=== PATIENT | male | born 1950 | race Caucasian/White ===

== ENCOUNTER → 2022-01-26 | Day surgery (SDC) | payer MEDICARE, OTHER ==
[~2022-01-26] VITALS: Ht 182.9 cm; Wt 70.8 kg
[~2022-01-26] MED LIST: AUGMENTIN 875-1 EACH PO; DUONEB 2.5-0.5M1 AMP NEB; MS CONTIN30 MG PO; NEURONTIN300 MG PO; PERCOCET 5-3251 EACH PO
[2022-01-26 08:25] LABS: HCT 49.2 % (42.0-52.0); HGB 16.4 g/dl (13.2-18.0); MCH 31.2 pg (25.0-31.0); MCHC 33.3 g/dL (32.0-36.0); MCV 93.5 fL (78.0-100.0); MPV 8.4 fL (6.0-9.5); RBC 5.26 M/uL (4.70-6.00); RDW 11.5 % (11.5-14.0); WBC 9.6 K/uL (4.0-10.5)
[2022-01-26 08:57] LABS: ALBUMIN 4.5 g/dL (3.4-5.0); BILIRUBIN - TOTAL 0.6 mg/dL (0.2-1.0); BUN/CREAT RATIO (CALC) 14.1 RATIO; CREATININE 0.99 mg/dL (0.67-1.17); GLOBULIN (CALCULATION) 3.5 g/dL; POTASSIUM 5.2 mmol/L (3.5-5.1)
== END | disposition home or self-care (01) ==
LOC: FAS 07:54
PROVIDERS: Surgery
DX: R19.5 Other fecal abnormalities (principal); D12.3 Benign neoplasm of transverse colon; K58.9 Irritable bowel syndrome, unspecified; J44.9 Chronic obstructive pulmonary disease, unspecified; Z87.891 Personal history of nicotine dependence
CPT/HCPCS: 36415; 80053; J1610; J2704; J7120